=== PATIENT | male | born 1945 | race Caucasian/White ===

== ENCOUNTER 2024-09-18 13:14 | Emergency (ER) | payer MEDICARE ==
[~2024-09-18] VITALS: Ht 172.7 cm; Wt 87.1 kg
[~2024-09-18 13:14] MED LIST: CRESTOR10 MG PO; ENTRESTO 24 MG1 EACH PO; FISH OIL 1,0001 EAC2 PO; METOPROLOL SUCC25 MG PO; VITAMIN D310 MCG PO; XARELTO10 MG PO
[2024-09-18 13:15] VITALS: TEMP 98.3
[2024-09-18 16:50] VITALS: PULSE 73; RESP 12; O2SAT 99
== END 2024-09-18 17:03 | disposition home or self-care (01) ==
LOC: ER 13:18
DX: S00.03XA Contusion of scalp, initial encounter (principal); W22.09XA Striking against other stationary object, initial encounter; Y92.89 Other specified places as the place of occurrence of the external cause; I10 Essential (primary) hypertension; E78.5 Hyperlipidemia, unspecified; I25.2 Old myocardial infarction; Z95.1 Presence of aortocoronary bypass graft; Z86.73 Personal history of transient ischemic attack (TIA), and cerebral infarction without residual deficits; Z96.652 Presence of left artificial knee joint
CPT/HCPCS: 70450; 99284